=== PATIENT | female | born 1960 | race Caucasian/White ===

== ENCOUNTER 2018-12-21 09:46 | Emergency (ER) | payer OTHER ==
[2018-12-21 09:50] VITALS: BP 139/80; PULSE 72; TEMP 98.1; BMI 27.4
--- NOTE | 2018-12-21 09:59 | PDOC ---
History of Present Illness - General Chief Complaint: Pain, Acute Stated Complaint: RIGHT ANKLE PAIN Time Seen by Provider: 12/21/18 09:51 - History of Present Illness Initial Comments: 12/21/18 12:44 Chief complaint: Right ankle pain History of present illness: Twisted right ankle last night. Persistent pain and swelling. Difficulty ambulating. Review of systems: Denies falling, denies any other injuries including pain or injuries to the head neck chest abdomen spine pelvis or other extremities. Denies distal numbness tingling or limited motion of the foot. Past medical history: Reviewed and noncontributory Social/family history reviewed and noncontributory Physical exam: Alert and oriented well-developed well-nourished no acute distress, cooperative Afebrile, vital signs normal Head atraumatic. PERRLA, fundi benign, ENT clear Neck supple without bruit mass or nodes. No tenderness or deformity. Full range of motion without pain Chest clear to P&A. Full breath sounds bilaterally. No chest wall or rib cage tenderness or deformity CV regular without murmur rub or gallop Abdomen benign Extremities: Normal except for the right ankle, which shows swelling of the anterolateral ligaments, but minimal tenderness in this area. There is significant tenderness over the medial malleolus, but no swelling erythema or warmth. No fifth metatarsal tenderness. No deformity. Pulses full. No distal sensory deficits Impression: Severe sprain versus fracture. Plan: X-ray and further orthopedic management depending on results. Refuses analgesics at present Past History - Past Medical History Allergies/Adverse Reactions: Allergies Allergy/AdvReac Type Severity Reaction Status Date / Time No Known Allergies Allergy Verified 12/21/18 09:47 Home Medications: Ambulatory Orders Oxycodone HCl/Acetaminophen [Percocet 5-325 mg Tablet] 1 - 2 tab PO Q6H PRN #20 tablet MDD 6 12/21/18 COPD: No - Suicide/Smoking/Psychosocial Hx Smoking History: Never smoked Hx Alcohol Use: Yes (OCASIONAL) Drug/Substance Use Hx: No *Physical Exam - Vital Signs Last Vital Signs Temp Pulse Resp BP Pulse Ox 98.1 F 72 17 139/80 100 12/21/18 09:47 12/21/18 09:47 12/21/18 09:47 12/21/18 09:47 12/21/18 09:47 Medical Decision Making - Medical Decision Making 12/21/18 12:55 X-ray reveals an isolated fracture of the medial malleolus, minimal displacement. Ankle mortise is intact. Procedure note: Posterior splint application Posterior splint applied with the foot in neutral position, patient more comfortable after application, no distal numbness or tingling, good toe motion and capillary refill. Crutches and nonweightbearing prescribed. Analgesics to pharmacy Follow-up orthopedist 2-3 days for definitive treatment. Return to the ER if there are any further symptoms. Adequately ambulatory with pain controlled at discharge to follow-up as directed *DC/Admit/Observation/Transfer Diagnosis at time of Disposition: Fractured medial malleolus Qualifiers: Encounter type: initial encounter Fracture type: closed Fracture alignment: displaced Laterality: right Qualified Code(s): S82.51XA - Displaced fracture of medial malleolus of right tibia, initial encounter for closed fracture - Discharge Dispostion Disposition: HOME Condition at time of disposition: Improved Decision to Admit order: No - Prescriptions Prescriptions: Oxycodone HCl/Acetaminophen [Percocet 5-325 mg Tablet] 1 - 2 tab PO Q6H PRN #20 tablet MDD 6 PRN Reason: Severe Pain - Referrals Referrals: Donny Laughlin MD [Staff Physician] - 2 Days - Patient Instructions Printed Discharge Instructions: DI for Ankle Fracture Additional Instructions: Rest, elevate, ice, complete nonweightbearing Maintain splint and use crutches as directed See orthopedist for further evaluation and treatment as recommended 2-3 days. Surgical treatment may be necessary. - Post Discharge Activity Forms/Work/School Notes: Back to Work
[2018-12-21] MEDS ORDERED: DIPHTH,PERTUSS(ACELL),TET 0.5 ML DISP.SYRIN IM ONE ×2 (10:54→10:58)
== END 2018-12-21 11:09 | disposition home or self-care (01) ==
LOC: FER 09:46
PROC: 2W3QX1Z Immobilization of Right Lower Leg using Splint (ICD-10-PCS; principal; 2018-12-21)
PROC: 3E0234Z Introduction of Serum, Toxoid and Vaccine into Muscle, Percutaneous Approach (ICD-10-PCS; 2018-12-21)
DX: S82.51XA Displaced fracture of medial malleolus of right tibia, initial encounter for closed fracture (principal); X58.XXXA Exposure to other specified factors, initial encounter; Y93.89 Activity, other specified; Y92.89 Other specified places as the place of occurrence of the external cause
CPT/HCPCS: 73610-TC-RT-FY; 90715; 99284-25